=== PATIENT | female | born 1995 | race Caucasian/White ===

== ENCOUNTER 2016-10-07 19:39 | Outpatient (CLI) | payer MEDICAID ==
--- NOTE | 2016-10-07 20:01 | L&D Flow Sheet ---
LD Flowsheet Datetime Report Generated by CPN: 10/07/2016 20:00 Datetime: 10/07/2016 19:56 Vital Signs NBP Sys/Shilpi/Mean (mmHg): 101 (QS system process) : 54 (QS system process) : 75 (QS system process) Pulse: 85 (QS system process) Datetime: 10/07/2016 19:45 Maternal Assessment Level of Consciousness: Fully Conscious (Eliza Jassi, RN) DTR's/Clonus: DTRs 2+; No Clonus (Eliza Jassi, RN) Headache: Denies (Eliza Jassi, RN) Breath Sounds, Left: Clear and Equal (Eliza Jassi, RN) Breath Sounds, Right: Clear and Equal (Eliza Jassi, RN) Nausea/Vomiting: Present (Annotations: present nausea that started with ctn's) (Eliza Jassi, RN) RUQ Epigastric Pain: Denies (Eliza Jassi, RN) Datetime: 10/07/2016 19:43 Vaginal Exam Vaginal Bleeding: None (Eliza Keene RN) Cervix, Consistency: Moderate (Eliza Keene RN) Cervix, Position: Anterior (Eliza Keene RN) Vaginal Exam Comments: closed/TH/HIGH (Eliza Keene RN)
[2016-10-07 20:03] LABS: APPEARANCE,URINE SLIGHTLY-CLOUDY; BILIRUBIN,URINE NEGATIVE (NEGATIVE); GLUCOSE, URINE NEGATIVE (NEGATIVE); KETONES,URINE NEGATIVE (NEGATIVE); LEUKOCYTE ESTERASE,URINE SMALL (NEGATIVE); NITRITE,URINE NEGATIVE (NEGATIVE); PROTEIN,URINE NEGATIVE (NEGATIVE); URINE SPECIFIC GRAVITY 1.011; UROBILINOGEN,URINE NEGATIVE mg/dL (<2.0)
[2016-10-07 20:32] LABS: URINE BARBITURATES SCREEN NEGATIVE; URINE METHADONE SCREEN NEGATIVE; URINE OPIATES LOW NEGATIVE; URINE PHENCYCLIDINE SCREEN NEGATIVE
[2016-10-07] MEDS ORDERED: HYDROXYZINE PAMOATE 50 MG CAPSULE ONE (21:23)
[2016-10-07] MEDS ORDERED: HYDROXYZINE PAMOATE 50 MG CAPSULE PO ONE (22:00)
== END 2016-10-07 21:24 | disposition home or self-care (01) ==
LOC: LC 19:39
PROVIDERS: ATTEND Obstetrics & Gynecology
PROC: 4A1HXCZ Monitoring of Products of Conception, Cardiac Rate, External Approach (ICD-10-PCS; principal; 2016-10-07)
DX: O47.1 False labor at or after 37 completed weeks of gestation (principal); Z3A.39 39 weeks gestation of pregnancy
CPT/HCPCS: 59025; 81005; 80307; J3490

== ENCOUNTER 2016-10-22 18:02 | Inpatient (IN) | payer MEDICAID ==
[2016-10-22] MEDS ORDERED: OXYTOCIN/NORMAL SALINE 1,000 ML IV PRN (18:11)
[2016-10-22] MEDS ORDERED: RINGERS SOLUTION,LACTATED 300 ML IV ONE (18:11)
[2016-10-22 19:58] LABS: ABSOLUTE EOSINOPHILS # (AUTO) 0.1 10^3/uL (0.0-0.6); ABSOLUTE LYMPHOCYTES (AUTO) 1.6 10^3/uL (0.5-4.7); ABSOLUTE MONOCYTES (AUTO) 1.1 10^3/uL (0.1-1.4); ABSOLUTE NEUT (AUTO) 8.1 10^3/uL (1.7-8.2); BASOPHILS % (AUTO) 0.2 % (0-2); EOSINOPHILS % (AUTO) 0.6 % (0-6); HEMATOCRIT 32.8 % (36.0-47.0); HEMOGLOBIN 11.2 g/dL (12.0-15.5); HGB HCT DIFFERENCE 0.8; LYMPHOCYTES % (AUTO) 15.1 % (13-45); MEAN CORPUSCULAR HEMOGLOBIN 31.4 pg (27.0-33.4); MEAN CORPUSCULAR HGB CONC 34.1 g/dL (32.0-36.0); MEAN CORPUSCULAR VOLUME 92 fl (80-97); MONOCYTES % (AUTO) 9.8 % (3-13); RED BLOOD COUNT 3.56 10^6/uL (3.72-5.28); RED CELL DISTRIBUTION WIDTH 14.3 % (11.5-14.0); SEGMENTED NEUTROPHILS % (AUTO) 74.3 % (42-78); WHITE BLOOD COUNT 10.9 10^3/uL (4.0-10.5)
[2016-10-22] MEDS ORDERED: DINOPROSTONE 10 MG VAGINAL INSERT.SR ONE (19:59)
[2016-10-22] MEDS: DINOPROSTONE 10 MG VAGINAL INSERT.SR PV PRN (20:08)
[2016-10-22] MEDS: RINGERS SOLUTION,LACTATED 1,000 ML IV PRN (20:09)
[2016-10-22] MEDS ORDERED: ZOLPIDEM TARTRATE 5 MG TABLET ONE (22:09)
[2016-10-22] MEDS: ZOLPIDEM TARTRATE 5 MG TABLET PO SCH (22:09)
[2016-10-22 23:14] LABS: APPEARANCE,URINE CLEAR; BILIRUBIN,URINE NEGATIVE (NEGATIVE); GLUCOSE, URINE NEGATIVE (NEGATIVE); KETONES,URINE TRACE mg/dL (NEGATIVE); LEUKOCYTE ESTERASE,URINE NEGATIVE (NEGATIVE); NITRITE,URINE NEGATIVE (NEGATIVE); PROTEIN,URINE NEGATIVE (NEGATIVE); URINE SPECIFIC GRAVITY 1.011; UROBILINOGEN,URINE NEGATIVE mg/dL (<2.0)
[2016-10-22 23:34] LABS: URINE BARBITURATES SCREEN NEGATIVE; URINE METHADONE SCREEN NEGATIVE; URINE OPIATES LOW NEGATIVE; URINE PHENCYCLIDINE SCREEN NEGATIVE
[2016-10-23] MEDS: RINGERS SOLUTION,LACTATED 1,000 ML IV PRN (04:51)
[2016-10-23 06:23] LABS: AMNISURE (ROM) NEGATIVE (NEGATIVE)
[2016-10-23] MEDS ORDERED: OXYTOCIN/NORMAL SALINE 20 UNIT/1,000 ML RTUINJ ONE ×2 (08:34→11:56)
[2016-10-23] MEDS ORDERED: OXYTOCIN/NORMAL SALINE 1,000 ML IV PRN ×2 (08:35→21:24)
[2016-10-23] MEDS: DINOPROSTONE 10 MG VAGINAL INSERT.SR PV PRN (08:57)
[2016-10-23] MEDS: ZOLPIDEM TARTRATE 5 MG TABLET PO SCH (08:57)
[2016-10-23] MEDS ORDERED: ACETAMINOPHEN 325 MG TABLET PO ONE (09:34)
[2016-10-23] MEDS ORDERED: ACETAMINOPHEN 325 MG TABLET ONE (09:34)
[2016-10-23] MEDS ORDERED: NALBUPHINE HCL INJ 10 MG/1 ML AMPULE ONE (10:22)
[2016-10-23] MEDS ORDERED: NALBUPHINE HCL INJ 10 MG/1 ML AMPULE IV ONE (10:30)
[2016-10-23] MEDS ORDERED: EPHEDRINE SULFATE INJ 50 MG/1 ML AMPULE ONE (11:56)
[2016-10-23] MEDS ORDERED: MISOPROSTOL 0.2 MG TABLET ONE ×2 (11:56→21:39)
[2016-10-23] MEDS ORDERED: LIDOCAINE 1% INJ-PF (10 MG/ML) 30 ML SDV ONE (11:56)
[2016-10-23] MEDS ORDERED: BUPIVACAINE HCL 0.25 % INJ/PF (2.5 MG/1 ML) 30 ML VIAL ONE (11:56)
[2016-10-23] MEDS ORDERED: FENTANYL/BUPIVACAINE/NS/PF 200 MCG/100 ML RTUINJ EPI ONE (11:56)
--- NOTE | 2016-10-23 11:58 | L&D Progress Notes ---
PROGRESS NOTES Datetime Report Generated by CPN: 10/23/2016 11:57 PROGRESS NOTE Impression: Reassuring Heart Rate Procedures: Sterile Vag Exam Plan: Induction Plan Other: pt may have epidural Informed Consent Obtained: Vaginal Delivery Vital Signs : Reviewed Comment: Pt more uncomfortable, desires epidural Pitocin at 18 mu per protocol May have epidural, plan AROM after pt is comfortable. VAGINAL EXAM Dilatation: 2 Dilatation: 0 Effacement: 80 Station: -1 Contractions: every 2 min Contractions: irregular MEMBRANES Membranes: Intact Membranes: Intact FETUS A FHR - Baseline: 125 Monitoring: External US Variability: Moderate 6-25bpm Accelerations: 15X15 Decelerations: None FHR Category: Category I Estimated Weight (gm): 3600 Presentation: Vertex SIGNATURE SIGNATURE: [id number];[id number] SIGNATURE: [id number] Assignment: Stuart Lange MD Signature: with User ID: [email or web address] : with User ID: [email or web address]
--- NOTE | 2016-10-23 14:14 | L&D Progress Notes ---
PROGRESS NOTES Datetime Report Generated by CPN: 10/23/2016 14:14 PROGRESS NOTE Impression: Rupture of Membranes Procedures: Artificial ROM Plan: Induction Vital Signs : Reviewed Comment: Pt more comfortable with epidural AROM, bloody fluid Continue to monitor. VAGINAL EXAM Dilatation: 3 Effacement: 80 Station: -1 Contractions: 2-3 MEMBRANES Membranes: Ruptured Amniotic Fluid Color: Bloody FETUS A FHR - Baseline: 125 Monitoring: External US Variability: Moderate 6-25bpm Accelerations: 15X15 Decelerations: None FHR Category: Category I FETUS C SIGNATURE: [id number];[id number] Assignment: Stuart Lange MD Signature: with User ID: [email or web address] : with User ID: [email or web address]
--- NOTE | 2016-10-23 16:43 | L&D Progress Notes ---
PROGRESS NOTES Datetime Report Generated by CPN: 10/23/2016 16:42 PROGRESS NOTE Impression: Reassuring Heart Rate Procedures: Sterile Vag Exam Plan: Continue Present Management; Induction Vital Signs : Reviewed Comment: pt resting comfortably with epidural Continue pitocin for labor induction VAGINAL EXAM Dilatation: 4 Effacement: 80 Station: -1 Contractions: irregular MEMBRANES Membranes: Ruptured FETUS A FHR - Baseline: 130 Monitoring: External US Variability: Moderate 6-25bpm Accelerations: 15X15 Decelerations: None FHR Category: Category I FETUS C SIGNATURE: [id number];[id number] Assignment: Stuart Lange MD Signature: with User ID: [email or web address] : with User ID: [email or web address]
[2016-10-23] MEDS ORDERED: ZOLPIDEM TARTRATE 5 MG TABLET PO PRN (21:24)
[2016-10-23] MEDS ORDERED: DIBUCAINE 1% OINTMENT 28 GM TP PRN (21:24)
[2016-10-23] MEDS ORDERED: PROMETHAZINE HCL 25 MG SUPP.RECT PR PRN (21:24)
[2016-10-23] MEDS ORDERED: PSEUDOEPHEDRINE HCL 30 MG TABLET PO PRN (21:24)
[2016-10-23] MEDS ORDERED: GLYCERIN/WITCH HAZEL LEAF 1 EACH MED..PAD TP PRN (21:24)
[2016-10-23] MEDS ORDERED: ACETAMINOPHEN WITH CODEINE #3 TABLET PO PRN (21:24)
[2016-10-23] MEDS ORDERED: DIPH/PERTUSS(ACELL)/TETANUS VAC/PF 0.5 ML SYR (>=10YO) IM PRN (21:24)
[2016-10-23] MEDS ORDERED: MAGNESIUM HYDROXIDE SUSP 30 ML UDCUP PO PRN (21:24)
[2016-10-23] MEDS ORDERED: DIPHENHYDRAMINE HCL 25 MG CAPSULE PO PRN (21:24)
[2016-10-23] MEDS ORDERED: ACETAMINOPHEN 650 MG SUPP.RECT PR PRN (21:24)
[2016-10-23] MEDS ORDERED: PROMETHAZINE HCL 25 MG TABLET PO PRN (21:24)
[2016-10-23] MEDS ORDERED: NA PHOS,M-B/NA PHOS,DI-BA (ADULT) 133 ML ENEMA PR PRN (21:24)
[2016-10-23] MEDS ORDERED: MEASLES,MUMPS&RUBELLA VACC/PF 0.5 ML VIAL SUBCUT PRN (21:24)
[2016-10-23] MEDS ORDERED: BENZOCAINE/MENTHOL AEROSOL SPRAY 56 ML TOP PRN (21:24)
[2016-10-23] MEDS ORDERED: PROMETHAZINE HCL INJ 25 MG/1 ML VIAL IV PRN (21:24)
[2016-10-23] MEDS: ACETAMINOPHEN WITH CODEINE #3 TABLET PO PRN (21:39)
[2016-10-23] MEDS ORDERED: ACETAMINOPHEN WITH CODEINE #3 TABLET ONE (21:39)
[2016-10-23] MEDS ORDERED: CEFTRIAXONE 1 GM/D5W RTU 1 GM/50 ML RTUPB IV ONE ×2 (22:33→23:00)
[2016-10-23] MEDS: IBUPROFEN 800 MG TABLET PO SCH (22:55)
[2016-10-23] MEDS ORDERED: FAMOTIDINE 20 MG TABLET ONE (22:56)
[2016-10-23] MEDS ORDERED: IBUPROFEN 800 MG TABLET ONE (22:56)
[2016-10-23] MEDS: FAMOTIDINE 20 MG TABLET PO SCH (22:56)
--- NOTE | 2016-10-23 23:12 | Delivery Summary ---
Del Sum A-C Datetime Report Generated by CPN: 10/23/2016 23:12 DELIVERY PERSONNEL DELIVERY PERSONNEL: [id number];[id number] Delivery Doctor:: Stuart Lange MD Labor and Delivery Nurse:: Tamiko Carmichael RNcustomer marketing manager Nurse:: Charisma Ambrose RN Nursery Nurse:: Jovana Morales RN MSN Associate Director Of Development/ELECTRIC [employer]ZOR ASSEMBLER: PATRICK PabloA MATERNAL INFORMATION Delivery Anesthesia: Epidural Medications After Delivery: Pitocin Drip 20 Units/1000ml NSS; Other-Please Comment Meds After Delivery Comment: Cytotec 1000 mcg [place] Maternal Complications: None LABOR SUMMARY EDC: 10/11/2016 00:00 No. Babies in Womb: 1 Labor Anesthesia: Epidural LABOR INFORMATION Reason for Induction: Post Dates Onset of Labor: 10/23/2016 14:04 Complete Dilatation: 10/23/2016 20:20 Cervical Ripening Agents: Cervidil Oxytocin: Induction Group B Beta Strep: negative MEMBRANES Membranes Rupture Method: Artificial Rupture of Membranes: 10/23/2016 14:04 Length of Rupture (hr): 7.17 Amniotic Fluid Color: Bloody Amniotic Fluid Amount: Moderate Amniotic Fluid Odor: Normal STAGES OF LABOR Stage 1 hr: 6 Stage 1 min: 16 Stage 2 hr: 0 Stage 2 min: 54 Stage 3 hr: 0 Stage 3 min: 4 Total Time in Labor hr: 7 Total Time in Labor min: 14 VAGINAL DELIVERY Episiotomy: None Laceration Extension: N/A Laceration Type: None Laceration Repair: Not Applicable Sponge Count Correct: Vaginal Sweep Performed Sharps Count Correct: N/A CSECTION DELIVERY Primary Indication: N/A Secondary Indication: N/A CSection Incidence: N/A Labor: N/A Elective: N/A CSection Incision: N/A BABY A INFORMATION Delivery Date/Time: 10/23/2016 21:14 Method of Delivery: Vaginal Born in Route : No : N/A Forceps: N/A Vacuum Extraction: N/A Shoulder Dystocia : Yes SHOULDER DYSTOCIA BABY A Delivery of Head: 10/23/2016 21:13 Time Head to Delivery : 1.0 1st Intervention to Resolve: McRobert's Maneuver 2nd Intervention to Resolve: Suprapubic Pressure Verify NO Fundal Pressure: No Fundal Pressure Applied Arm Under Symphisis at Del: Left PRESENTATION/POSITION BABY A Presentation: Cephalic Cephalic Presentation: Vertex Vertex Position: Left Occipital Anterior Breech Presentation: N/A PLACENTA INFORMATION BABY A Placenta Delivery Time : 10/23/2016 21:18 Placenta Method of Delivery: Spontaneous Placenta Status: Delivered SCORES BABY A Heart Rate 1 min: >100 bpm Resp Effort 1 min: Slow, Irregular Reflex Irritability 1 min: Cough or Sneeze or Pulls Away Muscle Tone 1 min: Some Flexion of Extremities Color 1 min: Blue/Pale Resuscitation Effort 1 min: Tactile Stimulation; Oxygen SCORE 1 MIN: 6 Heart Rate 5 min: >100 bpm Resp Effort 5 min: Good Cry Reflex Irritability 5 min: Cough or Sneeze or Pulls Away Muscle Tone 5 min: Some Flexion of Extremities Color 5 min: Body [place], Extremities Blue Resuscitation Effort 5 min: Tactile Stimulation SCORE 5 MIN: 8 INFORMATION BABY A Gestational Age at Delivery: 41.5 Gestational Status: Late Term- 41- 41.6 Weeks Infant Outcome : Liveborn Infant Condition : Stable Sex: Female IDENTIFICATION BABY A Verification Date/Time: 10/23/2016 21:21 ID Band Number: [id number] Mother's Name Verified: Yes Infant RN Verifying : S. Lattibmarkus, RN Additional Verifying Personnel: DPrakash Noblesse, ELECTRIC RAZOR ASSEMBLER/US WEIGHT/LENGTH BABY A Infant Birthweight (gm): 3730 Infant Weight (lb): 8 Weight (oz): 4 Length (in): 21.00 Infant Length (cm): 53.34 CORD INFORMATION BABY A No. Cord Vessels: 3 Nuchal Cord : Around Neck x1, Loose Cord Blood Taken: Yes-For Eval (Mom's Blood Type - or O+) Infant Suction: Mouth; Nose; Pharynx ASSESSMENT BABY A Complications: Shoulder Dystocia Physical Findings at Delivery: Within Normal Limits; Molding of the Head Infant Respirations: Tachypnea Skin to Skin: No Easter Bunny/ALS Called : No Care By: Donn Ambrose RN/ Donn Morales RN Transferred To: [facility] SIGNATURES Signature: with User ID: [email or web address]
--- NOTE | 2016-10-24 00:13 | Admission Physical ---
Datetime Report Generated by CPN: 10/24/2016 00:12 CURRENT ADMISSION Hx Assessment: The History has been Reviewed and is Current Chief Complaint: Scheduled Induction of Labor Indication for Induction: Post Dates Admit Plan: Admit to Unit; Initiate Labor Induction Protocol ALLERGIES Medication Allergies: No Medication Allergies: No Known Allergies (10/07/2016) Latex: No Latex Allergies Food Allergies: None Environmental Allergies: None OBSTETRICAL HISTORY EDC: 10/11/2016 00:00 : 1 Para: 0 Term: 0 : 0 SAB: 0 IAB: 0 Ectopic: 0 Livin Cesareans: 0 VBACs: 0 Multiple Births: 0 Gestational Diabetes: No Rh Sensitization: No Incompetent Cervix: No RUTH: No Infertility: No ART Treatment: No Uterine Anomaly: No IUGR: No Hx Previous C/S: No Macrosomia: No Hx Loss/Stillborn: No PIH: No Hx : No Placenta Previa/Abruption: No Depression/PP Depression: No PTL/PROM: No Post Hemorrhage: No Current Procedures: None Obstetrical History Comments: G1: current SEE RECORDS Alcohol: No Marijuana : No Cocaine: No Other Illicit Drugs: No (Annotations: Data stored by [facility] on behalf of user) Cigarettes: Former Smoker. [id number] MEDICAL HISTORY Diabetes: No Blood Transfusion: No Pulmonary Disease (Asthma, TB): No Breast Disease: No Hypertension: No Teacher Selection Specialist Surgery: No Heart Disease: No Hosp/Surgery: No Autoimmune Disorder: No Anesthetic Complications: No Kidney Disease: No Abnormal Pap Smear: No Neuro/Epilepsy: No Psychiatric Disorders: No Other Medical Diseases: No Hepatitis/Liver Disease: No Significant Family History: No Varicosities/Phlebitis: No Trauma/Violence : No Thyroid Dysfunction: No INFECTIOUS HISTORY Gonorrhea: No Genital Herpes: No Chlamydia: No Tuberculosis: No Syphilis: No Hepatitis: No HIV/AIDS Exposure: No Rash or Viral Illness: No HPV: No PHYSICAL EXAM General: Normal HEENT: Normal Neurologic: Normal Thyroid: Deferred Heart: Normal Lungs: Normal Breast: Normal Back: Normal Abdomen: Normal Genitourinary Exam: Normal Extremities: Normal DTRs: Normal Pelvic Type: Adequate Vital Signs: Reviewed VAGINAL EXAM Dilatation: 4 Dilatation: 3 Dilatation: 2 Dilatation: 0 Effacement: 80 Effacement: 80 Effacement: 80 Station: -1 Station: -1 Station: -1 Contraction Comments: irregular Contraction Comments: 2-3 Contraction Comments: every 2 min Contraction Comments: irregular MEMBRANES Membranes: Ruptured Membranes: Ruptured Membranes: Intact Membranes: Intact Amniotic Fluid Color: Bloody FETUS A EGA: 41.5 Monitoring: External US FHR- Baseline: 135 Variability: Moderate 6-25bpm Accelerations: 15X15 Decelerations: None FHR Category: Category I Estimated Weight (gm): 3600 Presentation: Vertex Admit Comment: Scheduled iol for postdates Limited care, came to care here at 37w, dated by early sono. GBS negative See record for complete hx. PLANS FOR LABOR AND DELIVERY Labor and Delivery: None Pain Management: Epidural Feeding Preference: Both Benefit of Breast Feed Discussed: Yes Circumcision: N/A INFORMED CONSENT Informed Consent Obtained: Vaginal Delivery Assignment: Stuart Lange MD Signature: with User ID: [email or web address] : with User ID: [email or web address]
--- NOTE | 2016-10-24 03:12 | L&D Discharge Summary ---
OB Discharge Summary Datetime Report Generated by CPN: 10/24/2016 03:11 DISCHARGE DIAGNOSIS Diagnosis/Symptoms: False Labor Gestation: 41.5 Number of Babies in Womb: 1 Parity: 0 DIET/ACTIVITY/RESTRICTIONS Diet: Regular Activity: Normal Activity TEACHING/INSTRUCTIONS/REFERRALS Instructions Given To: patient Instructions Understood: Patient Verbalized Understanding; Support Person Verbalized Understanding Educational Materials- Other: care notes on kick counts and term labor instructions DISCHARGE INFORMATION Discharged AMA: No Discharge Date/Time: 10/07/2016 21:24 Discharged To: Home Discharge Provider Name: Dr. Zamorano Accompanied By: sig other Discharge Method: Ambulatory Condition: Stable FOLLOW UP INFORMATION Follow Up With: [facility] Follow Up On: As Scheduled Follow Up Phone Number: [facility] - Comments: Pt. d/c to home ambulatory and in stable condition at this time, pt. refusing need wheelchair. Pt. states that her pain is a 3/5 anvistaril adminstered prior to d/c. pt. denies any questions or concens prior to d/c and denies any further need for medical intervention. All pt. belongings were taken with pt. at this time. Pt. off unit and d/c to home at this time.
[2016-10-24] MEDS: IBUPROFEN 800 MG TABLET PO SCH ×3 (05:35→21:38)
[2016-10-24] MEDS: ACETAMINOPHEN WITH CODEINE #3 TABLET PO PRN ×2 (06:51→23:45)
[2016-10-24 07:06] LABS: HEMATOCRIT 28.7 % (36.0-47.0); HEMOGLOBIN 9.5 g/dL (12.0-15.5); HGB HCT DIFFERENCE -0.2; MEAN CORPUSCULAR HGB CONC 33.2 g/dL (32.0-36.0); MEAN CORPUSCULAR VOLUME 93 fl (80-97); RED BLOOD COUNT 3.08 10^6/uL (3.72-5.28); RED CELL DISTRIBUTION WIDTH 14.6 % (11.5-14.0); WHITE BLOOD COUNT 17.7 10^3/uL (4.0-10.5)
--- NOTE | 2016-10-24 08:56 | PDOC PROGRESS REPORT ---
Subjective-OB Subjective: Post Delivery Day: 20 year old. Denies any needs at this time Doing well, no c/o, breast and bottle, scant bleeding, baby in NICU, voiding, taking diet well Physical Exam (OB) Vital Signs: Temp Pulse Resp BP Pulse Ox 98.1 F 82 17 108/56 L 99 10/24/16 03:14 10/24/16 03:14 10/24/16 03:14 10/24/16 03:14 10/24/16 03:14 Intake & Output 10/23/16 10/24/16 10/25/16 06:59 06:59 06:59 Weight 83.2 kg - Lochia Lochia Amount: Small 10-25 ml Lochia Color: Rubra/Red - Abdomen Description: Soft Hernia Present: No Fundal Description: Firm, Midline Fundal Height: u/u - u/2 Objective-Diagnostic Laboratory: 10/24/16 06:50 10/24/16 06:50 WBC 17.7 H RBC 3.08 L Hgb 9.5 L Hct 28.7 L MCV 93 MCH 31.0 MCHC 33.2 RDW 14.6 H Plt Count 172 Assessment and Plan(PN) - Assessment and Plan (1) Normal vaginal delivery Is this a current diagnosis for this admission?: Yes - Time Spent with Patient Time with patient: Less than 15 minutes Medications reviewed and adjusted accordingly: Yes - Disposition Anticipated Discharge: Home Within: within 24 hours
[2016-10-24] MEDS: DOCUSATE SODIUM 100 MG CAPSULE PO SCH ×2 (09:03→17:08)
[2016-10-24] MEDS: SENNOSIDES/DOCUSATE 8.6-50 MG 1 EACH TABLET PO SCH (09:04)
[2016-10-24] MEDS: PRENATAL VITAMIN W-O CA NO5/FE FUMARATE/FA CAPSULE PO SCH (09:04)
[2016-10-24] MEDS: FAMOTIDINE 20 MG TABLET PO SCH ×2 (09:04→21:38)
[2016-10-24] MEDS: FERROUS SULFATE 325 MG TABLET PO SCH ×2 (09:04→17:08)
[2016-10-25] MEDS: IBUPROFEN 800 MG TABLET PO SCH ×2 (05:17→13:46)
[2016-10-25] MEDS: PRENATAL VITAMIN W-O CA NO5/FE FUMARATE/FA CAPSULE PO SCH (09:08)
[2016-10-25] MEDS: DOCUSATE SODIUM 100 MG CAPSULE PO SCH (09:09)
[2016-10-25] MEDS: SENNOSIDES/DOCUSATE 8.6-50 MG 1 EACH TABLET PO SCH (09:09)
[2016-10-25] MEDS: FERROUS SULFATE 325 MG TABLET PO SCH (09:09)
[2016-10-25] MEDS: FAMOTIDINE 20 MG TABLET PO SCH (09:09)
[2016-10-25 09:52] VITALS: BP 112/62
--- NOTE | 2016-10-25 10:48 | PDOC DISCHARGE SUMMARY ---
Final Diagnosis Discharge Date: 10/25/16 Discharge Data - Discharge Medication Home Medications: Vit #76/Iron,Carb/FA [Pnv 29-1 Tablet] 1 tab PO DAILY 10/07/16 Procedures: None Intrapartum Procedure(s): Spontaneous Vaginal Delivery - Diagnosis Test Laboratory: Temp Pulse Resp BP Pulse Ox 98.3 F 78 17 112/62 98 10/25/16 09:51 10/25/16 09:51 10/25/16 09:51 10/25/16 09:51 10/25/16 09:51 10/22/16 10/22/16 10/24/16 18:18 19:38 06:50 RBC 3.56 L 3.08 L Hgb 11.2 L 9.5 L Hct 32.8 L 28.7 L Urine Opiates Screen NEGATIVE - Discharge information/Instructions Discharge Activity: Activity As Tolerated, No Lifting Over 10 Pounds, Pelvic Rest, No tub bath Discharge Diet: Regular Disposition: HOME, SELF-CARE Follow up with: [facility] in: 4
[2016-10-25] MEDS: ACETAMINOPHEN WITH CODEINE #3 TABLET PO PRN (13:47)
== END 2016-10-25 17:42 | disposition home or self-care (01) | DRG 775 ==
LOC: LR 18:02 → 2S 10-24 00:11
PROVIDERS: ADMIT Obstetrics & Gynecology; ATTEND Obstetrics & Gynecology
PROC: 10E0XZZ Delivery of Products of Conception, External Approach (ICD-10-PCS; principal; 2016-10-23)
PROC: 10907ZC Drainage of Amniotic Fluid, Therapeutic from Products of Conception, Via Natural or Artificial Opening (ICD-10-PCS; 2016-10-23)
PROC: 3E0234Z Introduction of Serum, Toxoid and Vaccine into Muscle, Percutaneous Approach (ICD-10-PCS; 2016-10-25)
DX: O48.0 Post-term pregnancy (principal); O69.81X0 Labor and delivery complicated by cord around neck, without compression, not applicable or unspecified; O66.0 Obstructed labor due to shoulder dystocia; Z3A.41 41 weeks gestation of pregnancy; Z37.0 Single live birth; Z23 Encounter for immunization; O09.33 Supervision of pregnancy with insufficient antenatal care, third trimester
CPT/HCPCS: 36415; 80307; 81005; 84112; 85025; 85027; 86592; 86850; 86900; 86901; 90707; J0696; J2300; J2590; J3490